=== PATIENT | female | born 1945 ===

== ENCOUNTER 2020-02-07 10:34 | Outpatient (CLI) | payer OTHER | END 2020-02-07 10:45 | disposition home or self-care (01) | LOC: TOM 10:34 | PROVIDERS: ATTEND Internal Medicine Gastroenterology | DX: K80.80 Other cholelithiasis without obstruction (principal); Z12.11 Encounter for screening for malignant neoplasm of colon; K56.600 Partial intestinal obstruction, unspecified as to cause; K57.90 Diverticulosis of intestine, part unspecified, without perforation or abscess without bleeding; K44.9 Diaphragmatic hernia without obstruction or gangrene ==

== ENCOUNTER 2020-06-21 08:20 | Outpatient (CLI) | payer OTHER | END 2020-06-21 08:24 | disposition home or self-care (01) | LOC: NUCLEAR 08:20 | PROVIDERS: ATTEND Internal Medicine Cardiovascular Disease | DX: R00.2 Palpitations (principal) ==

== ENCOUNTER 2020-07-02 13:50 | Outpatient (CLI) | payer OTHER | END 2020-07-02 14:01 | disposition home or self-care (01) | LOC: RAD 13:50 → MAMO-SONO 14:45 | PROVIDERS: ATTEND Specialist | DX: J45.998 Other asthma (principal); R92.1 Mammographic calcification found on diagnostic imaging of breast ==

== ENCOUNTER 2020-07-06 14:28 | Outpatient (CLI) | payer OTHER | END 2020-07-06 14:32 | disposition home or self-care (01) | LOC: NUCLEAR 14:28 | PROVIDERS: ATTEND Obstetrics & Gynecology Gynecology | DX: M81.0 Age-related osteoporosis without current pathological fracture (principal) ==